=== PATIENT | male | born 1965 | race Caucasian/White ===

== ENCOUNTER 2021-12-22 09:52 | Emergency (ER) | payer OTHER ==
--- OUTSIDE RECORDS SUMMARY | 2021-12-22 09:54 | XMS REPORT | Continuity of Care Document ---
:1965 Author Organization [facility] t Address [address] [place] [address] Care Team Providers Name Role Phone Baudilio Bunn MD Primary Care Physician ANEUDY Attending Clinician Unavailable Baudilio BUNN Attending Clinician Unavailable Baudilio Bunn MD Attending Clinician Yosef MCGRAW Attending Clinician Unavailable GANESH MENON Attending Clinician Unavailable EMILY Attending Clinician Unavailable NOLAN Attending Clinician Unavailable Payers Payer Name Policy Type Policy Number Effective Date Expiration Date Marisol PETERSEN 2 [id number] 2019 00:00:00 Problems Condition Condition Condition Status Onset Resolution Last Treating Co mments Source Name Details Category Date Date Treatment Clinician Date Chronic Chronic Disease Active Last Tete diastolic diastolic 5-05 Assessmen S eybold congestive congestive 00:00: t & Plan: heart heart 00 Formattin failure failure g of this note might be different from the original. Unchanged Cont managemen t per cardiolog y Shortness Shortness Disease Active Fracisco sey of breath of breath 1-24 Seyb old 00:00: 00 DEWAYNE DEWAYNE Disease Active 2012-10 Overview: Tete (obstructi (obstructi 2-16 Formattin Seybold ve sleep ve sleep 00:00: g of this apnea) apnea) 00 note might be different from the original. Followed by Pulmonary [facility] Wt. 431 lbs. AHI 26.7 O2 62%Last Assessmen t & Plan: Formattin g of this note might be different from the original. Unchanged He will follow up with his pulm Vitamin D Vitamin D Disease Active Overview: Tete deficiency deficiency 6-12 Formattin Seybold 00:00: g of this 00 note might be different from the original. Goal > 30Last Assessmen t & Plan: Formattin g of this note might be different from the original. Not Controlle d - will check to see level of supplemen t needed Hyperlipid Hyperlipid Disease Active Overview : Tete emia emia -30 Formattin Seybold 00:00: g of this note might be different from the original. The 10-year ASCVD risk score (Gila BECKFORD Jr., et al., 2013) is: 15% Values used to calculate the score: Age: 55 years Sex: Male Is Non-Hispa wilmer : No Diabetic: No Tobacco smoker: Yes Systolic Blood Pressure: 124 mmHg Is BP treated: Yes HDL Cholester ol: 44 mg/dL Total Cholester ol: 232 mg/dL---- --------- --------- --------- --------- --Goal LDL % reduction 30-50%On dietary measuresL ast Assessmen t & Plan: Formattin g of this note might be different from the original. Unchanged Cont statin Class 3 Class 3 Disease Active Overview: Va álvarez severe severe 03-04 Formattin Seybold obesity obesity 00:00: g of this due to due to 00 note excess excess might be calories calories different with with from the serious serious original. comorbidit comorbidit Advising y and body y and body improved mass index mass index diet and (BMI) of (BMI) of exercise 50.0 to 50.0 to with goal 59.9 in 59.9 in for adult adult 10-15% weight loss annuallyL ast Assessmen t & Plan: Formattin g of this note might be different from the original. Unchanged Referred back to nutrition per Essential Essential Disease Active Overview: Tete hypertensi hypertensi - Formattin Seybold on on 00:00: g of this 00 note might be different from the original. Goal BP < 140/90On coreg, losartan, lasixLast Assessmen t & Plan: Formattin g of this note might be different from the original. Not Controlle d ? Related to weight gainInc carvedilo lPerhaps related to recent dietary indiscret ion as well Allergies, Adverse Reactions, Alerts Allergy Allergy Status Severity Reaction(s) Onset Inactive Treating Comm ents Source Name Type Date Date Clinician Felicia Henriquez Active Cough Tete il ty to 03-04 Seybold adverse 00:00: reaction 00 s Social History Social Habit Start Date Stop Date Quantity Comments Source History SDOH Tete Seybo ld Alcohol Frequency History SDOH Tete Seybo ld Alcohol Std Drinks History SDOH Tete Seybo ld Alcohol Binge Exposure to Not sure Tete Seybol d SARS-CoV-2 (event) History of tobacco Chews Tobacco Fracisco aleks Marquezybold use Alcohol intake 2021-11-29 2021-11-29 Current drinker Rakel y Seybold 00:00:00 00:00:00 of alcohol (finding) Alcohol Comment 2020-12-27 2020-12-27 8-12 beers twice Fracisco sey Seybold 00:00:00 00:00:00 a month Tobacco Comment 2020-12-27 2020-12-27 5 - 6 cigs once a Rashad levy Seybold 00:00:00 00:00:00 month Tobacco use and 2020-12-27 2020-12-27 User of smokeless Rashad levy Seybold exposure 00:00:00 00:00:00 tobacco Sex [birth year] At [birth year] M Tete Marquez ybgirish 00:00:00 00:00:00 Smoking Status Start Date Stop Date Source Occasional tobacco smoker 2020-12-27 00:00:00 Rashad lsey Seybold Medications Ordered Filled Start Stop Current Ordering Indication Dosage Frequency Signature Comments Components Source Medication Medication Date Date Medication? Clinician (SIG) Name Name Ascorbic Yes Take by Tete Acid - mouth Seybold (VITAMIN C 14:25: OR) 27 Multiple Yes Take by Tete Vitamins-Mi - mouth Seybold nerals 14:25: (ZINC OR) 27 Multiple Yes Take by Tete Vitamins-Mi 2-23 mouth Seybold nerals 14:25: (MENS 27 MULTIVITAMI N OR) Aspirin 81 Yes 1 TABLET Fracisco sey MG OR TABS 2-23 DAILY Seybold 14:24: 55 Carvedilol Yes [id number] 12.5mg Take 1 Tete 12.5 MG 2-23 tablet Seybold oral Tablet 00:00: (12.5 mg 00 total) by mouth 2 times daily (with meals) Need appointmen t for refills Atorvastati Yes [id number] TAKE 1 Tete n Calcium 1-21 TABLET BY Jhonatano ld 10 MG oral 00:00: MOUTH Tablet 00 EVERY DAY Vitamin D, Yes [id number] TAKE 1 K elsey Ergocalcife 1-21 CAPSULE BY Se ybgirish rol, 1.25 00:00: MOUTH MG (18257 00 EVERY DAY UT) oral ONCE A Capsule WEEK. Furosemide 2020-10 Yes [id number] 20mg Take 1 K elsey 20 MG oral 2-07 tablet (20 Sey bold Tablet 00:00: mg total) 00 by mouth daily Need appointmen t for refills Losartan Yes [id number] 100mg Take 1 Ke lsey Potassium 5-05 tablet Seybold 100 MG oral 00:00: (100 mg Tablet 00 total) by mouth daily Carvedilol 2021- No [id number] 6.25mg Take 1 Tete 6.25 MG 5-05 02-23 tablet Seybold oral Tablet 00:00: 00:00 (6.25 mg 00 :00 total) by mouth 2 times daily (with meals) Need appointmen t for refills Immunizations Ordered Immunization Filled Immunization Date Status Commen ts Source Name Name Tdap- (Boostrix, 2017-11-20 Completed Tete mojica Adacel) 00:00:00 Tdap- (Boostrix, 2006-10-07 Completed Tete mojica Adacel) 00:00:00 Vital Signs Vital Name Observation Time Observation Value Comments Source Systolic blood 2021-11-29 20:24:00 149 mm[Hg] Tete Marquezybold pressure Diastolic blood 2021-11-29 20:24:00 96 mm[Hg] Kelse y Seybold pressure Heart rate 2021-11-29 20:24:00 88 /min Tete mojica Body temperature 2021-11-29 20:24:00 36.5 Tri Va ey Seybgirish Respiratory rate 2021-11-29 20:24:00 24 /min Va álvarez Seybgirish Body height 2021-11-29 20:24:00 180.3 cm Tete mojica Body weight 2021-11-29 20:24:00 204.119 kg Per Patient Tete mojica BMI 2021-11-29 20:24:00 62.76 kg/m2 Tete mojica Procedures This patient has no known procedures. Encounters Start End Encounter Admission Attending Care Care Encounter Source Date/Time Date/Time Type Type Clinicians Facility Department ID 2022-06-29 2022-06-29 Outpatient TETE AMADO [id number] Tete 08:00:00 08:00:00 JOHAN Seybol d 2021-12-27 2021-12-27 Outpatient TETE BUNN [id number] Tete 15:15:00 15:15:00 ZENA Seybol d 2021-12-22 2021-12-22 Outpatient TETE AMADO [id number] Tete 09:00:00 09:00:00 JOHAN Seybol d 2021-11-29 2021-11-29 Office ADRIAN Bunn [id number] Tete 15:00:00 15:15:00 Visit Zena Hogan [id number] Se ybold [id number] 2021-10-27 2021-10-27 Outpatient TETE MCGRAW [id number] Tete 00:00:00 00:00:00 FELI Seybol d 2021-09-11 2021-09-11 Outpatient TETE MENON [id number] Tete 00:00:00 00:00:00 MAKENZIE Seybol d 2021-04-14 2021-04-14 Outpatient TETE DIAZ [id number] Tete 00:00:00 00:00:00 BASRODRI Seybol d 2021-04-11 2021-04-11 Emergency E NOLAN, [facility] [address] [facility] 07:19:00 11:40:00 DELON Results This patient has no known results.
[2021-12-22 10:36] LABS: Urine Blood Negative (Negative); Urine Glucose Negative (Negative); Urine Protein 3+ (Negative)
[2021-12-22] MEDS ORDERED: ACETAMINOPHEN 500 MG TAB ONE (10:40)
[2021-12-22] MEDS ORDERED: FENTANYL CITR 100 MCG/2 ML ONE (10:41)
[2021-12-22] MEDS ORDERED: KETOROLAC 30 MG/ML INJ ONE (10:41)
[2021-12-22 10:47] LABS: Absolute Lymphocytes (CBC) 0.6 K/uL (0.7-4.9); Hematocrit 40.2 % (39.6-49.0); MPV 8.3 fL (7.6-11.3)
[2021-12-22 10:51] LABS: Urine Amorphous Sediment 1+ /HPF (NONE SEEN); Urine Bacteria NONE SEEN /HPF (NONE SEEN); Urine RBC <5 /HPF (NONE SEEN)
[2021-12-22 11:02] LABS: Potassium 4.2 mmol/L (3.5-5.1)
[2021-12-22] MEDS ORDERED: VANCOMYCIN 1 GM/VIAL ONE ×2 (11:08→12:04)
[2021-12-22] MEDS ORDERED: CEFEPIME 1 GM/VIAL ONE (11:09)
[2021-12-22] MEDS ORDERED: NA CHLORIDE 0.9% 250 ML ONE ×2 (11:09→12:04)
[2021-12-22] MEDS ORDERED: NA CHLORIDE 0.9% 100 ML IV ONE (11:09)
--- NOTE | 2021-12-22 11:47 | RAD REPORT ---
EXAM DESCRIPTION: US - Scrotum Testicles - 12/22/2021 11:17 am CLINICAL HISTORY: rule out torsion COMPARISON: No comparisons FINDINGS: Testicular tissue is homogeneous. No focal mass of the testicles identified. Doppler evalu ation shows normal intratesticular blood flow. Neither epididymis was well visualized. Scrotal wall t hickening and edema is identified. Small hydroceles are present. Hyperechoic fatty tissues evident in the superior aspect of the scrotal sac which could indicate fatt y hernias. IMPRESSION: Findings are not suspicious for torsion. Doppler evaluation shows normal, symmetric intr atesticular blood flow pattern. Small hydroceles are present. Small fatty hernias cannot be excluded.
[2021-12-22 12:17] LABS: Anisocytosis SLIGHT; Blood Morphology Comment NOTED (NOT SEEN); Platelet Estimate ADEQ
[2021-12-22 12:18] LABS: Hypochromasia 1+
--- NOTE | 2021-12-22 13:32 | EDPHYS ---
Physician Documentation [facility] Name: Santana Longo Age: 56 yrs Sex: Male : 1965 Arrival Date: 12/22/2021 Time: 09:58 Bed 8 Private MD: ED Physician Jay Quinones HPI: 12/22 11:08 This 56 yrs old Male presents to ER via Ambulatory with complaints of Testicular jr8 Swelling. 11:08 Onset: The symptoms/episode began/occurred acutely, yesterday. Modifying factors: The jr8 symptoms are alleviated by nothing, the symptoms are aggravated by movement. Associated signs and symptoms: Pertinent positives: fever. Severity of symptoms: At their worst the symptoms were moderate, in the emergency department the symptoms are unchanged. The patient has not experienced similar symptoms in the past. The patient has not recently seen a physician. Patient stated that he had abrupt onset fever and chills yesterday. Stated that his right testicle started to hurt and now having significant increase in pain . Historical: - Allergies: 10:17 No Known Allergies; ll1 - PMHx: 10:17 Hypertensive disorder; ll1 - PSHx: 10:17 None; ll1 - Immunization history:: Client reports having NOT received the Covid vaccine. - Social history:: Smoking status: Patient reports the use of cigarette tobacco products, denies chronic smoking, but will smoke occasionally, Patient reports use of chewing tobacco. ROS: 11:08 Eyes: Negative for injury, pain, redness, and discharge, ENT: Negative for injury, jr8 pain, and discharge, Neck: Negative for injury, pain, and swelling, Cardiovascular: Negative for chest pain, palpitations, and edema, Respiratory: Negative for shortness of breath, cough, wheezing, and pleuritic chest pain, Abdomen/GI: Negative for abdominal pain, nausea, vomiting, diarrhea, and constipation, Back: Negative for injury and pain, : Negative for injury, bleeding, discharge, and/or urinary symptoms. Positive for testicular pain and swelling MS/Extremity: Negative for injury and deformity, Skin: Negative for injury, rash, and discoloration, Neuro: Negative for headache, weakness, numbness, tingling, and seizure. 11:08 Constitutional: Positive for fever. Exam: 11:08 Cardiovascular: Regular rate and rhythm with a normal S1 and S2. No gallops, murmurs, jr8 or rubs. Normal PMI, no JVD. No pulse deficits. Respiratory: Lungs have equal breath sounds bilaterally, clear to auscultation and percussion. No rales, rhonchi or wheezes noted. No increased work of breathing, no retractions or nasal flaring. Abdomen/GI: Soft, non-tender, with normal bowel sounds. No distension or tympany. No guarding or rebound. No evidence of tenderness throughout. Back: No spinal tenderness. No costovertebral tenderness. Full range of motion. Skin: Warm, dry with normal turgor. Normal color with no rashes, no lesions, and no evidence of cellulitis. MS/ Extremity: Pulses equal, no cyanosis. Neurovascular intact. Full, normal range of motion. Neuro: Awake and alert, GCS 15, oriented to person, place, time, and situation. Motor strength 5/5 in all extremities. Sensory grossly intact. 11:08 Constitutional: The patient appears alert, awake, in obvious pain. 11:08 : Male external genitalia: erythema, of the right testicle is seen, that is mild, swelling, scrotal, that is mild, tenderness, of the right testicle is noted, that is moderate, There is moderate induration that tracks from the scrotal region up through the right inguinal and lower pannus on the right side.. Vital Signs: 10:15 BP 161 / 64; Pulse 92; Resp 20; Temp 101.1; Pulse Ox 95% on R/A; Weight 204.12 kg; ll1 Height 6 ft. 0 in. (182.88 cm); Pain 5/10; 11:17 BP 131 / 85; Pulse 83; Resp 18; Temp 100.3(O); Pulse Ox 94% on R/A; Pain 1/10; ld1 12:13 BP 130 / 65; Pulse 86; Resp 18; Pulse Ox 96% on R/A; Pain 6/10; ld1 13:02 BP 131 / 61; Pulse 82; Resp 18; Pulse Ox 94% on R/A; Pain 3/10; ld1 10:15 Body Mass Index 61.03 (204.12 kg, 182.88 cm) ll1 MDM: 10:13 Patient medically screened. jr8 11:48 ED course: Called Dr. Ozuna about case presentation and not being able to get CT due jr8 to weight of patient. Requests that we attempt transfer. This has been discussed with patient and .. 13:24 Data reviewed: vital signs, nurses notes, lab test result(s), radiologic studies, [facility] ultrasound. Data interpreted: Pulse oximetry: on room air is 95 %. Interpretation: normal. Counseling: I had a detailed discussion with the patient and/or guardian regarding: the historical points, exam findings, and any diagnostic results supporting the discharge/admit diagnosis, lab results, radiology results, the need to transfer to another facility. 13:33 ED course: We have attempted [facility], [facility], and [facility] and its surrounding [facility] facilities at this time. All at capacity. [facility] is still trying to obtain bed assignment at surrounding facilities. of patient is frustrated and wants to take patient to [facility]. 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 ED course: Patients continues to argue about transfer process and wants to sign him out AMA. I again advised against this with both patient and as this is a significant infection and that he needs to be closely monitored. At this point they no longer cared and did not want to continue to wait for Dr. Ozuna or transfer. They signed out Against medical advise and were attempting to go to [facility] in the [facility] . 12/22 10:25 Order name: CBC with Diff; Complete Time: 12:20 [facility] 12/22 10:25 Order name: Basic Metabolic Panel; Complete Time: 11:03 [facility] 12/22 10:25 Order name: Urine Microscopic Only; Complete Time: 11:03 [facility] 12/22 10:25 Order name: Blood Culture Adult (2) [facility] 12/22 10:36 Order name: Urine Dipstick-Ancillary; Complete Time: 11:03 EDMT 12/22 11:02 Order name: Manual Differential; Complete Time: 12:20 EDMT 12/22 10:03 Order name: US Scrotum Testicles; Complete Time: 11:54 [facility] 12/22 12:29 Order name: SARS-COV-2 RT PCR (Document "Date of Onset" if Symptomatic) eb 12/22 12:30 Order name: SARS-COV-2 RT PCR EDMT 12/22 10:25 Order name: IV; Complete Time: 10:44 jr8 12/22 10:25 Order name: Urine Dipstick-Ancillary (obtain specimen); Complete Time: 10:40 jr8 Administered Medications: 10:46 Drug: fentaNYL (PF) 50 mcg Route: IVP; Site: left hand; ld1 10:47 Drug: Tylenol 1000 mg Route: PO; ld1 10:47 Drug: Ketorolac 15 mg Route: IVP; Site: left hand; ld1 11:17 Drug: Cefepime 1 grams Route: IVPB; Rate: 200 ml/hr; Infused Over: 30 mins; Site: left ld1 hand; 12:08 Drug: vancoMYCIN 1 grams Route: IVPB; Infused Over: 2 hrs; Site: left hand; vg1 Disposition Summary: 12/22/21 13:31 Left Against Medical Advice Location: Other(12/22/21 13:39) jr8 Problem: new jr8 Symptoms: are unchanged jr8 Condition: Serious(12/22/21 13:39) jr8 Diagnosis - Jasmin gangrene jr8 Discharge Instructions: - Discharge Summary Sheet jr8 Signatures: Dispatcher [employer] EDMS Warren Shoemaker PA PA jr8 Nia Ochoa RN RN vg1 Singh Perry RN RN ll1 Lucy Salas RN RN ld1 Corrections: (The following items were deleted from the chart) 11:54 11:14 Abdomen Pelvis W Con+CT.RAD.BRZ ordered. EDMT EDMT 12:03 11:08 : Male external genitalia: erythema, of the right testicle is seen, that is jr8 mild, swelling, scrotal, that is mild, tenderness, of the right testicle is noted, that is moderate, jr8 13:39 13:31 Home ld1 jr8 13:39 13:31 Undetermined ld1 jr8
--- NOTE | 2021-12-22 13:32 | ER ---
Nurse's Notes [facility] Name: Santana Longo Age: 56 yrs Sex: Male : 1965 Arrival Date: 12/22/2021 Time: 09:58 Bed 8 Private MD: Diagnosis: Jasmin gangrene Presentation: 12/22 10:15 Chief complaint: Patient states: R testicle swelling for 2 days. + chills. Coronavirus ll1 screen: Vaccine status: Patient reports being unvaccinated. Client denies travel out of the [place] in the last 14 days. At this time, the client does not indicate any symptoms associated with coronavirus-19. Ebola Screen: Patient denies travel to an Ebola-affected area in the 21 days before illness onset. Initial Sepsis Screen: Does the patient meet any 2 criteria? HR > 90 bpm. No. Patient's initial sepsis screen is negative. Does the patient have a suspected source of infection? Yes: Other: testes. Risk Assessment: Do you want to hurt yourself or someone else? Patient reports no desire to harm self or others. Onset of symptoms was December 21, 2021. 10:15 Method Of Arrival: Ambulatory ll1 10:15 Acuity: ARIANA 2 ll1 Triage Assessment: 10:17 General: Appears uncomfortable, Behavior is cooperative, appropriate for age. Pain: ll1 Complains of pain in R testes Quality of pain is described as aching, throbbing. : Reports swelling R testicle. Historical: - Allergies: 10:17 No Known Allergies; ll1 - PMHx: 10:17 Hypertensive disorder; ll1 - PSHx: 10:17 None; ll1 - Immunization history:: Client reports having NOT received the Covid vaccine. - Social history:: Smoking status: Patient reports the use of cigarette tobacco products, denies chronic smoking, but will smoke occasionally, Patient reports use of chewing tobacco. Screenin:00 Abuse screen: Denies threats or abuse. Denies injuries from another. Nutritional ld1 screening: No deficits noted. Tuberculosis screening: No symptoms or risk factors identified. Fall Risk None identified. Assessment: 11:00 General: Appears in no apparent distress. uncomfortable, Behavior is calm, cooperative, ld1 appropriate for age. 11:00 Pain: Complains of pain in groin Pain does not radiate. Pain currently is 10 out of 10 ld1 on a pain scale. Quality of pain is described as pressure, stabbing, throbbing, Pain began 1 day ago. Is continuous. Neuro: Level of Consciousness is awake, alert, obeys commands, Oriented to person, place, time, situation. Cardiovascular: Capillary refill < 3 seconds Patient's skin is warm and dry. Rhythm is regular. Respiratory: Airway is patent Respiratory effort is even, unlabored, Respiratory pattern is regular, symmetrical. GI: Abdomen is round non-distended. GI:. : Reports pain scrotum, testicle, since 1 day ago Denies burning with urination, inability to void, incontinence. EENT: No signs and/or symptoms were reported regarding the EENT system. Derm: No signs and/or symptoms reported regarding the dermatologic system. Musculoskeletal: No signs and/or symptoms reported regarding the musculoskeletal system. 12:20 Reassessment: Patient appears in no apparent distress at this time. Patient and/or ld1 family updated on plan of care and expected duration. Pain level reassessed. Pt and family requesting to leave due to pt not being able to fit in CT machine. Pt states that she want's pt to sign out AMA and go to the [facility]. Notified ERP. 13:02 Reassessment: Patient appears in no apparent distress at this time. No changes from ld1 previously documented assessment. Patient states symptoms have improved. 13:30 Reassessment: Pt and Pt demanding to be discharged at this moment. Notified ERP. ld1 Pt signed AMA form. Vital Signs: 10:15 BP 161 / 64; Pulse 92; Resp 20; Temp 101.1; Pulse Ox 95% on R/A; Weight 204.12 kg; ll1 Height 6 ft. 0 in. (182.88 cm); Pain 5/10; 11:17 BP 131 / 85; Pulse 83; Resp 18; Temp 100.3(O); Pulse Ox 94% on R/A; Pain 1/10; ld1 12:13 BP 130 / 65; Pulse 86; Resp 18; Pulse Ox 96% on R/A; Pain 6/10; ld1 13:02 BP 131 / 61; Pulse 82; Resp 18; Pulse Ox 94% on R/A; Pain 3/10; ld1 10:15 Body Mass Index 61.03 (204.12 kg, 182.88 cm) ll1 ED Course: 09:58 Patient arrived in ED. ja2 10:13 Warren Shoemaker PA is PHCP. jr8 10:13 Jay Quinones MD is Attending Physician. jr8 10:15 Arm band placed on Patient placed in an exam room, on a stretcher. ll1 10:17 Triage completed. ll1 10:40 Initial lab(s) drawn, by me, sent to lab. First set of blood cultures drawn by me. em1 Inserted saline lock: 20 gauge in left hand, using aseptic technique. Blood collected. 10:46 Lucy Salas, RN is Primary Nurse. ld1 10:50 Urine Microscopic Only Sent. ld1 11:00 Patient has correct armband on for positive identification. Bed in low position. Call ld1 light in reach. Side rails up X2. Pulse ox on. NIBP on. Door closed. Noise minimized. Warm blanket given. 11:00 No provider procedures requiring assistance completed. ld1 11:01 Notified Nurse Practitioner and/or Physician Medical Insurance Claims Specialist of a critical lab result(s), WBC aa5 20.3. 11:17 US Scrotum Testicles In Process Unspecified. EDMS 12:28 initiated a transfer with [facility] as requested by eb patient and patient's . 12:32 per Naren from the [facility] [place]/ They will take the patient information eb but will have to decline the patient in transfer due to being at capacity. 12:37 initiated a transfer with Chris from the [facility]/. eb 12:50 per Chris the [facility] will have to decline due to being at capacity. eb 12:51 initiated a transfer with Radha Ulloa from the [facility]. eb 13:10 reintiated a transfer with Shabana from the [facility] [employer] for the [facility]. 13:13 per Shabana [facility] will have to decline the patient in transfer due to eb being at capacity. 13:20 initiated a transfer with Tia from [facility] in [place]. eb 13:31 IV discontinued, intact, bleeding controlled, No redness/swelling at site. ld1 13:38 Primary Nurse role handed off by Lucy Salas, SILVANA mandel Administered Medications: 10:46 Drug: fentaNYL (PF) 50 mcg Route: IVP; Site: left hand; ld1 10:47 Drug: Tylenol 1000 mg Route: PO; ld1 10:47 Drug: Ketorolac 15 mg Route: IVP; Site: left hand; ld1 11:17 Drug: Cefepime 1 grams Route: IVPB; Rate: 200 ml/hr; Infused Over: 30 mins; Site: left ld1 hand; 12:08 Drug: vancoMYCIN 1 grams Route: IVPB; Infused Over: 2 hrs; Site: left hand; vg1 Outcome: 13:31 AMA AMA form signed ld1 13:31 Condition: unchanged 13:31 Instructed on the need for admit, the need for transfer. 13:31 Patient left the ED. ld1 13:39 Patient left the ED. tequila Signatures: Dispatcher [employer] Philipp Clements em1 Nelli Grier RN RN aa5 Warren Shoemaker PA PA jr8 Radha Cerna Victoria, RN RN vg1 Singh Perry RN RN 1 Lucy Salas RN RN ld1 Carly Nair Corrections: (The following items were deleted from the chart) 13:14 12:28 initiated a transfer with Na[facility] from the [facility]. tequila mandel
[2021-12-22 13:56] VITALS: TEMP 100.3
[2021-12-22 13:58] VITALS: BP 131/61; O2SAT 94
== END 2021-12-22 13:39 | disposition left against medical advice (07) ==
LOC: ER 09:52 → SUPCPDRO 09:52 → ER 13:31
DX: N49.3 Fournier gangrene (principal); I10 Essential (primary) hypertension; Z72.0 Tobacco use; Z20.822 Contact with and (suspected) exposure to COVID-19
CPT/HCPCS: 87040 ×2; 85025; 80048; 36415; 76870; 96375; 96374; 99284; U0003; J3010; J3370 ×2; J7050 ×2; J0692; 81003; 81015